=== PATIENT | female | born 1990 | race Caucasian/White ===

== ENCOUNTER 2018-04-05 10:25 | Inpatient (IN) | payer BC ==
[2018-04-05] VITALS (15 sets, daily range): BP systolic 110–143; BP diastolic 62–81; PULSE 56–106; TEMP 97.6–98.7
[~2018-04-05] VITALS: Ht 175.3 cm; Wt 74.5 kg
[2018-04-05] MEDS ORDERED: PRENATAL1 TA7 PO (10:52)
[2018-04-05 11:52] LABS: BASO % 0.2 % (0.0-2.0); EOS % 0.1 % (0-4.0); GRAN # 14.7 (1.4-6.5); GRAN % 89.7 % (42.2-75.2); HEMATOCRIT 41.5 % (37.0-47.0); HEMOGLOBIN 14.5 g/dl (12.5-16.0); LYMPH # 1.2 (1.2-3.4); MEAN CELL VOLUME 94 fl (80.0-100.0); MEAN CORPUSCULAR HEMOGLOBIN 33 pg (27.0-31.0); MEAN CORPUSCULAR HGB CONC 35 g/dl (33.0-37.0); MEAN PLATELET VOLUME 12.7 fl (7.4-10.4); MONO # 0.4 (0.1-0.6); MONO % 2.4 % (1.7-9.3); PLATELET COUNT 168 K/mm3 (130-400); RED BLOOD COUNT 4.44 M/mm3 (4.10-5.30); REDCELL DISTRIBUTION WIDTH-CV 11.7 % (11.5-14.5)
[2018-04-05 21:25] LABS: BASO % 0.2 % (0.0-2.0); EOS % 0.1 % (0-4.0); GRAN # 12.8 (1.4-6.5); GRAN % 83.7 % (42.2-75.2); LYMPH # 1.6 (1.2-3.4); LYMPH % 10.3 % (20.0-51.0); MEAN CELL VOLUME 93 fl (80.0-100.0); MEAN CORPUSCULAR HGB CONC 36 g/dl (33.0-37.0); MEAN PLATELET VOLUME 11.9 fl (7.4-10.4); MONO # 0.8 (0.1-0.6); MONO % 5.4 % (1.7-9.3); PLATELET COUNT 155 K/mm3 (130-400); RED BLOOD COUNT 3.01 M/mm3 (4.10-5.30); REDCELL DISTRIBUTION WIDTH-CV 11.7 % (11.5-14.5)
[2018-04-05 21:29] LABS: HEMATOCRIT 28.1 % (37.0-47.0); MEAN CORPUSCULAR HEMOGLOBIN 33 pg (27.0-31.0)
[2018-04-06 05:00] VITALS: BP 112/76; PULSE 82; TEMP 97.8
[2018-04-06 07:00] VITALS: BP 113/62; PULSE 74; TEMP 97.6
[2018-04-06 07:30] LABS: BASO % 0.3 % (0.0-2.0); EOS # 0.1 (0.0-0.7); EOS % 0.5 % (0-4.0); GRAN # 8.8 (1.4-6.5); GRAN % 73.6 % (42.2-75.2); LYMPH # 2.4 (1.2-3.4); LYMPH % 20.2 % (20.0-51.0); MEAN CELL VOLUME 96 fl (80.0-100.0); MEAN CORPUSCULAR HGB CONC 35 g/dl (33.0-37.0); MEAN PLATELET VOLUME 12.2 fl (7.4-10.4); MONO # 0.6 (0.1-0.6); MONO % 4.9 % (1.7-9.3); PLATELET COUNT 134 K/mm3 (130-400); RED BLOOD COUNT 2.79 M/mm3 (4.10-5.30); REDCELL DISTRIBUTION WIDTH-CV 11.7 % (11.5-14.5)
[2018-04-06 07:37] LABS: HEMATOCRIT 26.7 % (37.0-47.0); HEMOGLOBIN 9.2 g/dl (12.5-16.0); MEAN CORPUSCULAR HEMOGLOBIN 33 pg (27.0-31.0)
[2018-04-06 16:30] VITALS: BP 112/76; PULSE 76; TEMP 97.8
[2018-04-06 22:30] VITALS: BP 114/75; PULSE 69; TEMP 98.3
[2018-04-07 08:27] VITALS: BP 125/79; PULSE 96
[2018-04-07] MEDS ORDERED: FERRO-TIME325 MG PO (11:53)
[2018-04-07] MEDS ORDERED: IBU800 M1 PO (11:53)
[2018-04-07] MEDS ORDERED: PERCOCET 325 MG1 TA2 PO (11:53)
== END 2018-04-07 13:10 | disposition home or self-care (01) | DRG 775 ==
LOC: LDRO 10:25 → OB 10:56 → LDR 10:56 → OB 18:00
PROVIDERS: Student in an Organized Health Care Education/Training Program
PROC: 10E0XZZ Delivery of Products of Conception, External Approach (ICD-10-PCS; principal; 2018-04-05)
PROC: 0KQM0ZZ Repair Perineum Muscle, Open Approach (ICD-10-PCS; 2018-04-05)
DX: O70.1 Second degree perineal laceration during delivery (principal); Z37.0 Single live birth; Z3A.41 41 weeks gestation of pregnancy; O90.81 Anemia of the puerperium
CPT/HCPCS: J2590; J7120

== ENCOUNTER 2020-01-09 07:46 | Emergency (ER) | payer SELFPAY ==
[~2020-01-09] VITALS: Ht 172.7 cm; Wt 65.9 kg
[~2020-01-09 07:46] MED LIST: FERRO-TIME325 MG PO; IBU800 M1 PO; PERCOCET 325 MG1 TA2 PO; PRENATAL1 TA7 PO
[2020-01-09 07:54] VITALS: TEMP 97.8
[2020-01-09] MEDS ORDERED: PRENATAL MULTIV1 KIT PO (08:04)
[2020-01-09 10:05] VITALS: BP 120/90; PULSE 89
== END 2020-01-09 10:01 | disposition home or self-care (01) ==
LOC: COL.ER 07:46
DX: O26.892 Other specified pregnancy related conditions, second trimester (principal); O46.92 Antepartum hemorrhage, unspecified, second trimester; R10.2 Pelvic and perineal pain; Z3A.18 18 weeks gestation of pregnancy

== ENCOUNTER → 2020-05-26 | Outpatient (CLI) | payer OTHER ==
[~2020-05-26] MED LIST changes: +PRENATAL MULTIV1 KIT PO; +TYLENOL PM EXTR1 TA1 PO
== END | disposition still patient (30) ==
LOC: ZCOL.LAB 08:00
DX: Z20.828 Contact with and (suspected) exposure to other viral communicable diseases (principal)

== ENCOUNTER 2020-06-01 05:36 | Inpatient (IN) | payer OTHER ==
[2020-06-01] VITALS (17 sets, daily range): BP systolic 94–130; BP diastolic 39–99; PULSE 56–75; TEMP 97.6–98.6
[~2020-06-01] VITALS: Ht 175.4 cm; Wt 78.9 kg
[~2020-06-01 05:36] MED LIST changes: -TYLENOL PM EXTR1 TA1 PO
--- NOTE | 2020-06-01 05:45 | NUR ---
G2L1 arrives to unit ambulatory for scheduled section. Pt oriented to room, call light within reach, bed in low and locked positioned. Pt changed into clean gown. US and toco explained and applied. Pt reports good movement, occasional mild contractions, and denies vaginal bleeding. Vital signs obtained. IV started in left forearm, admission labs obtained off IV start, lactated ringers infusing to gravity. Consents reviewed and signed with patient and spouse.
[2020-06-01] MEDS ORDERED: TYLENOL PM EXTR1 TA1 PO (06:30)
[2020-06-01 06:38] LABS: BASO % 0.2 % (0.0-2.0); EOS # 0.1 (0.0-0.7); EOS % 1.2 % (0-4.0); GRAN # 5.4 (1.4-6.5); HEMATOCRIT 39.1 % (37.0-47.0); HEMOGLOBIN 13.5 g/dl (12.5-16.0); LYMPH # 2.3 (1.2-3.4); LYMPH % 27.1 % (20.0-51.0); MEAN CELL VOLUME 95 fl (80.0-100.0); MEAN CORPUSCULAR HEMOGLOBIN 33 pg (27.0-31.0); MEAN CORPUSCULAR HGB CONC 35 g/dl (33.0-37.0); MEAN PLATELET VOLUME 12.4 fl (7.4-10.4); MONO # 0.6 (0.1-0.6); MONO % 7.1 % (1.7-9.3); PLATELET COUNT 164 K/mm3 (130-400); REDCELL DISTRIBUTION WIDTH-CV 11.9 % (11.5-14.5)
--- NOTE | 2020-06-01 16:00 | NUR ---
Ambulates to the bathroom. Gutierrez catheter taken out. Susan-care given. Ambulates back to bed. Abdominal binder on.
[2020-06-02 03:00] VITALS: BP 114/75; PULSE 67; TEMP 98.5
[2020-06-02] MEDS ORDERED: IBU800 M1 PO (08:12)
[2020-06-02] MEDS ORDERED: PERCOCET 325 MG1 TA2 PO (08:12)
[2020-06-02 09:00] VITALS: BP 112/67; PULSE 71; TEMP 97.8
[2020-06-02 16:30] VITALS: BP 140/85; PULSE 70; TEMP 97.8
[2020-06-02 16:32] VITALS: BP 115/66; PULSE 69; TEMP 97.3
[2020-06-02 19:30] VITALS: BP 111/69; PULSE 72; TEMP 98
--- NOTE | 2020-06-03 | NUR ---
Assumed care at this time. Motrin administered per order. infant. Updated whiteboard and reviewed POC. Denied questions or concerns.
[2020-06-03 08:30] VITALS: BP 112/63; PULSE 79; TEMP 97.7
--- NOTE | 2020-06-03 11:30 | NUR ---
Reviewed discharge instructions with patient. Provided information on patients follow up and new medications. Denies questions. [id number]-Patient escorted off unit with spouse and infant.
== END 2020-06-03 12:23 | disposition home or self-care (01) | DRG 788 ==
LOC: OB 05:36
PROVIDERS: ADMIT Student in an Organized Health Care Education/Training Program
PROC: 10D00Z1 Extraction of Products of Conception, Low, Open Approach (ICD-10-PCS; principal; 2020-06-01)
DX: O32.1XX0 Maternal care for breech presentation, not applicable or unspecified (principal); Z37.0 Single live birth; O75.89 Other specified complications of labor and delivery; N85.6 Intrauterine synechiae; O99.824 Streptococcus B carrier state complicating childbirth; O43.123 Velamentous insertion of umbilical cord, third trimester; O46.93 Antepartum hemorrhage, unspecified, third trimester; Z3A.39 39 weeks gestation of pregnancy
CPT/HCPCS: J0690; J1100; J1885; J2370; J2405; J2590; J7120

== ENCOUNTER 2020-11-09 12:21 | Emergency (ER) | payer OTHER ==
[~2020-11-09] VITALS: Ht 172.7 cm; Wt 65.9 kg
[~2020-11-09 12:21] MED LIST changes: +TYLENOL PM EXTR1 TA1 PO
[2020-11-09 15:20] VITALS: BP 122/74; PULSE 67; TEMP 98.3
== END 2020-11-09 15:20 | disposition home or self-care (01) ==
LOC: COL.ER 12:21
DX: S06.0X0A Concussion without loss of consciousness, initial encounter (principal); S09.90XA Unspecified injury of head, initial encounter; S16.1XXA Strain of muscle, fascia and tendon at neck level, initial encounter; W10.9XXA Fall (on) (from) unspecified stairs and steps, initial encounter
CPT/HCPCS: J1885